=== PATIENT | male | born 2000 | race Asian ===

== ENCOUNTER 2021-09-17 01:59 | Emergency (ER) | payer OTHER ==
[~2021-09-17] VITALS: Ht 177.8 cm; Wt 68.2 kg
[2021-09-17] MEDS ORDERED: TRUVT PO (03:14)
[2021-09-17] MEDS ORDERED: FEXO-236 PO (03:14)
[2021-09-17] MEDS ORDERED: [UNRECOGNIZED DRUG - CODE] PO (03:14)
[2021-09-17 04:43] VITALS: BP 119/81
== END 2021-09-17 04:00 | disposition home or self-care (01) ==
LOC: EMS 03:06
DX: G43.109 Migraine with aura, not intractable, without status migrainosus (principal); Z91.013 Allergy to seafood; Z91.018 Allergy to other foods
CPT/HCPCS: 99281; Z7502